=== PATIENT | male | born 1970 | race Caucasian/White ===

== ENCOUNTER 2023-01-06 10:04 | Emergency (ER) | payer MEDICAID, OTHER ==
[~2023-01-06] VITALS: Ht 180.3 cm; Wt 81.6 kg
[~2023-01-06 10:04] MED LIST: BUPR100T13 PO; DULO60CA42 PO; GABA-529 PO; HYDR25TA4 PO; LOSA50TA3 PO; NAPR-1172 PO
[2023-01-06 10:13] VITALS: BP_SYST 140; PULSE 88; RESP 18; TEMP 98.1; O2SAT 98
--- NOTE | 2023-01-06 10:18 | NUR ---
Patient to [facility] 1 to gown for evaluation. Side rails up.
--- NOTE | 2023-01-06 10:19 | NUR ---
DR HORVATH IN [facility] FOR EXAM.
[2023-01-06] MEDS ORDERED: HYDROcodone/ACETAMIN 10-325 MG TAB PO ONE (10:45)
[2023-01-06 11:12] VITALS: BP_SYST 129; PULSE 81; RESP 16; TEMP 98.1; O2SAT 99
--- NOTE | 2023-01-06 11:13 | NUR ---
Patient given written and verbal discharge instructions and verbalizes understanding. ER MD discussed with patient the results and treatment provided. Patient in stable condition. ID arm band removed.
== END 2023-01-06 11:13 | disposition home or self-care (01) ==
LOC: SED 10:04
DX: S93.401A Sprain of unspecified ligament of right ankle, initial encounter (principal); I10 Essential (primary) hypertension; F12.90 Cannabis use, unspecified, uncomplicated; Z79.899 Other long term (current) drug therapy; Y30.XXXA Falling, jumping or pushed from a high place, undetermined intent, initial encounter; Y93.89 Activity, other specified; Y92.89 Other specified places as the place of occurrence of the external cause; Y99.8 Other external cause status
CPT/HCPCS: 99283